=== PATIENT | male | born 1980 | race Hispanic/Latino ===

== ENCOUNTER 2025-02-11 15:59 | Emergency (ER) | payer OTHER ==
[~2025-02-11] VITALS: Ht 170.2 cm; Wt 113.4 kg
--- NOTE | 2025-02-11 16:13 | EKG ---
[facility] Test Date: 2025-02-11 Test Time: 16:07:55 Pat Name: VICKIE POMPA Department: [facility] Patient ID: [id number] Room: Gender: M [employer]: [facility] : 1980 Requested By: ASHOK ECHEVARRIA Order Number: [id number] Reading MD: Cyrus Meyer Measurements Intervals [place] Rate: 111 P: 56 [place]: 147 QRS: 51 QRSD: 97 T: -5 QT: 328 QTc: 446 Interpretive Statements Sinus tachycardia possible old inferior [place] No previous ECG available for comparison Electronically Signed On 02-11-2025 19:12:00 [employer] by Cyrus Meyer Please click the below link to view image of tracing.
[2025-02-11 16:37] LABS: NUCLEATED RED BLOOD CELLS 0.0 % (0.0-0.19); PLATELET COUNT (AUTO) 243.0 K/uL (130-400); RED BLOOD CELL COUNT(AUTO) 4.98 MIL/uL (4.50-6.20); RED CELL DISTRIBUTION WIDTH 12.7 % (11.0-15.5); WHITE BLOOD COUNT (AUTO) 9.5 K/uL (4.8-10.8)
--- NOTE | 2025-02-11 16:37 | ERN ---
General Chief Complaint: Chest Pain Stated Complaint: CHEST PAIN Time Seen by MD: 16:09 Source: patient History of Present Illness Initial Comments 44-year-old male, history of hypertension, obese, presents for chest pains. Patient reports four or five days of chest tightness. He reports difficulty taking deep respirations and some chest pain in the center of the chest. None xertional. Waxes and wanes. Very brief episodes. No current pain. He has a couple no cough congestion. No other symptoms. Timing/Duration: 1-3 hours Severity: mild Associated Symptoms: chest pain Allergies: Coded Allergies: No Known Drug Allergies (Unverified Allergy, Unknown, 02/11/25) Past Medical History Past Medical History: Hypertension, Sinusitis Past Surgical History: None ROS Dictation CONSTITUTIONAL: No chills, no fever, no weakness, no diaphoresis, no malaise. HEAD/FACE: No signs of trauma. EENT: No eye pain, no blurred vision, no tearing, no double vision, no ear sahara n, no ear discharge, no nose pain, no nasal congestion, no throat pain, no throat swelling, no mouth pain. RESPIRATORY: No cough, no orthopnea, no SOB, no stridor, no wheezing. CARDIOVASCULAR: Chest tightness. GASTROINTESTINAL/ABDOMINAL: No abdominal pain, no constipation, no diarrhea, no nausea, no vomiting. GENITOURINARY: No abnormal discharge, no dysuria, no frequent urination, no hematuria. No complaints of pain in the genitals. MUSCULOSKELETAL: No back pain, no gout, no joint pain, no joint swelling, no muscle pain, no muscle stiffness, no neck pain. INTEGUMENTARY: No change in color, no change in hair/nails, no dryness, no lesion, no lumps, no rash. NEUROLOGICAL/PSYCH: No anxiety, not depressed, no emotional problem, no headache, no numbness, no pre-existing deficit, no history of seizures, no tremors, no weakness. HEMATOLOGIC/LYMPHATIC: Not anemic, no history of blood clots, no apparent bleeding, no bruising, glands not swollen. All Systems Negative, Except as Noted. Constitutional: (-) chills, (-) diaphoresis, (-) fever, (-) malaise, (-) weakness, (-) other documentation EENTM: (+) nose congestion, (+) throat pain; (-) eye pain, (-) blurred vision, (-) tearing, (-) double vision, (-) ear pain, (-) ear discharge, (-) nose pain, (-) Throat swelling, (-) mouth pain, (-) tooth pain, (-) mouth swelling, (-) other documentation Respiratory: (-) cough, (-) orthopnea, (-) short of breath, (-) stridor, (-) wheezing, (-) other documentation Cardiovascular: (+) chest pain Gastrointestinal/Abdominal: (-) nausea, (-) vomiting, (-) diarrhea, (-) abdominal pain, (-) abdominal distention, (-) constipation, (-) rectal bleeding, (-) dark stool/melena, (-) other documentation Genitourinary: (-) penile discharge, (-) dysuria, (-) frequency, (-) hematuria, (-) pain, (-) other documentation Musculoskeletal: (-) Neck pain, (-) back pain, (-) Flank Pain, (-) joint pain, (-) joint swelling, (-) muscle pain, (-) muscle stiffness, (-) gout, (-) other documentation Skin: (-) laceration, (-) contusion, (-) abrasion, (-) abscess, (-) rash, (-) change in color, (-) change in hair, (-) change in nails, (-) diaphoresis, (-) dryness, (-) other documentation Neuro: (-) altered mental status, (-) headache, (-) syncope, (-) paralysis, (-) numbness, (-) seizure, (-) pre-existing deficit, (-) tremors, (-) weakness, (-) dizziness, (-) slurred speech, (-) vertigo, (-) other documentation Psych: (-) depression, (-) suicidal ideation, (-) anxiety, (-) emotional problems, (-) auditory hallucinations, (-) visual hallucinations Physical Exam Physical Exam Dictation VITAL SIGNS: Reviewed. GENERAL APPEARANCE: Alert, oriented x3, no acute distress, obese. HEAD AND FACE: Non-traumatic. EYES: PERRL, pink conjunctivas, eyelid no trauma, anterior chamber clear. EARS: Pinnas intact and no signs of trauma or erythema. Ear canals clear and no discharge. TMs no erythema. NOSE: No discharge, no bleeding. OROPHARYNX: Mouth normal, teeth no caries, tongue pink. Pharynx clear, no erythema. Tonsils no exudates, no abscesses noted. Mucous membrane moist. NECK: Supple, non-tender, no thyromegaly, no masses, no JVD, no bruits. BREAST: Deferred. CHEST: No tenderness, no crepitus, no paradoxical movement, no retractions. LUNGS: Clear, well-ventilated, symmetric, no rales, no wheezing, no rhonchi, no stridor, good breath sounds bilaterally. HEART: Regular rate, regular rhythm, no murmur, no gallops. VASCULAR: No peripheral edema. ABDOMEN: Soft, positive bowel sounds, nondistended, no guarding, nontender, no rebound, no masses no hepatomegaly, no splenomegaly, no Armenta's sign, no hernias. RECTAL: Deferred. GENITAL: Deferred. NEUROLOGICAL: Normal speech, gross motor function intact, gross sensory function intact. MUSCULOSKELETAL: Neck nontender, full range of motion, back nontender, full range of motion. EXTREMITIES: Nontender, full range of motion. SKIN: Color pink, dry, no turgor, no rash, no lacerations, no abrasions, no contusions. LYMPHATICS: Deferred. General Appearance: (+) no apparent distress Orientation: (+) alert, (+) oriented x 3 Head/Face Trauma: No Ear, Nose, Throat: (+) nasal congestion Neck: (-) normal inspection, (-) supple, (-) full range of motion, (-) no JVD, (-) non-tender, (-) no bruit, (-) tender, (-) limited range of motion, (-) tender lateral, (-) tender midline, (-) thyromegaly, (-) lymphadenopathy, (-) masses, (-) carotid bruit, (-) other documentaion Respiratory: (-) chest non-tender, (-) lungs clear, (-) well ventilated, (-) decreased breath sounds, (-) retractions, (-) abnormal breath sound, (-) crackles, (-) plerual rub, (-) rales, (-) rhonchi, (-) stridor, (-) wheezing, (- ) other documentation Heart: (+) tachycardia Vascular: (-) no edema, (-) normal peripheral pulse, (-) no JVD, (-) abdominal aorta, (-) abnormal peripheral pulse, (-) carotid bruit, (-) edema, (-) JVD, (-) varicose vein, (-) other documentation Gastrointestinal: (-) soft, (-) non-tender, (-) no organomegaly, (-) bowel sound present, (-) distended, (-) tender, (-) abnormal bowel sounds, (-) bowel sound absent, (-) rebound, (-) armenta's sign, (-) guarding, (-) hernia, (-) mass, (-) pulsatile mass, (-) CVA tenderness, (-) hepatomegaly, (-) spleenomegaly, (-) other documentation, (-) McBerney's, (-) other documentation Extremities: (-) normal range of motion, (-) non-tender, (-) normal inspection, (-) no pedal edema, (-) no calf tenderness, (-) normal capillary refill, (-) pelvis stable, (-) calf tenderness, (-) inflammation, (-) pedal edema, (-) slow capillary refill, (-) swelling, (-) other Neurologic/Psychiatric: (-) normal speech, (-) no motor defecits, (-) no sensory deficits, (-) half backer II-XII nml as tested, (-) normal gait, (-) normal mood/affect, (-) abnormal cerebellar tests, (-) abnormal gait, (-) aphasia, (-) facial droop, (-) other documentation Results Laboratory and Microbiology Lab and Micro Result Laboratory Tests Test 02/11/25 16:32 02/11/25 17:15 White Blood Count 9.5 K/uL (4.8-10.8) Red Blood Count 4.98 MIL/uL (4.50-6.20) Hemoglobin 15.0 g/dL (14.0-18.0) Hematocrit 44.3 % (42-54) Mean Corpuscular Volume 89.0 fL (79-99) Mean Corpuscular Hemoglobin 30.1 pg (27.0-33.0) Mean Corpuscular Hemoglobin Concent 33.9 g/dL (32.0-36.0) Red Cell Distribution Width 12.7 % (11.0-15.5) Platelet Count 243 K/uL (130-400) Mean Platelet Volume 9.5 fL (7.5-10.5) Nucleated Red Blood Cells 0.0 % (0.0-0.19) Sodium Level 138 mmol/L (136-145) Potassium Level 3.6 mmol/L (3.5-5.1) Chloride Level 102 mmol/L (101-111) Carbon Dioxide Level 29 mmol/L (21-32) Blood Urea Nitrogen 10 mg/dL (7-18) Creatinine 1.0 mg/dL (0.5-1.3) Glomerular Filtration Rate Calc 95 mL/min (>90) Random Glucose 113 mg/dL (70-105) H Total Calcium 8.6 mg/dL (8.5-10.1) Troponin I High Sensitivity 5 ng/L (4-75) Influenza Type A Antigen Negative For Type A Influenza Type B Antigen Negative For Type B SARS-CoV-2 Antigen (Rapid) PRESUMPTIVE NEGATIVE Group A Streptococcus Rapid negative (NEGATIVE) EKG/XRAY/US/CT/MRI EKG Comment Heart rate 111 WI interval 147 QT interval [address] segment elevation MDM CC: Chest tightness Historian: Patient Comorbidities: Obesity, hypertension Limitations by social determinants of health: None Differential diagnosis: ACS, PE, TID, bronchitis, other EKG: Sinus rhythm, rate 111, normal axis, good R-wave progression, intervals are stable. No STEMI. Independently interpreted by me. Labs no leukocytosis no anemia. Chemistry panel is unremarkable. Troponin normal. Chest x-ray is unremarkable Flu and COVID swabs are negative. Patient has a heart score of three based on age and risk factors. Normal troponin. He has been having chest pains for four days, no indication to repeat the troponin. No signs of PE, low risk Wells. No signs of other life threats. Plan will be to discharge to outpatient cardiology follow up. ED Course Orders Procedure Category Date Status Time 12 Lead Ekg Tracing- EKG 02/11/25 Complete Technical 16:07 Cbc Without LAB 02/11/25 Complete Differential 16:09 Basic Metabolic Panel LAB 02/11/25 Complete 16:09 Troponin I High LAB 02/11/25 Complete Sensitivity 16:09 Chest 1vw RAD 02/11/25 Taken 16:09 Influenza Type A & B, LAB 02/11/25 Complete Rapid 16:09 Rapid (Group A Strep) LAB 02/11/25 Complete 16:09 Covid19 (Sars Antigen LAB 02/11/25 Complete Rapid) 16:09 Acetaminophen 325 Tab PHA 02/11/25 Complete (Tylenol 325mg Tab 17:00 Current Medications Medications (Trade) Dose Ordered Sig/Zuleyma Route PRN Reason Start Time Stop Time Status Last Admin Dose Admin Acetaminophen (TYLenol 325MG TAB) 650 mg ONCE ONCE PO 02/11/25 17:00 02/11/25 17:01 DC 02/11/25 17:22 Vital Signs Date Time Temp Pulse Resp B/P (MAP) Pulse Ox O2 Delivery O2 Flow Rate FiO2 02/11/25 16:45 97.7 89 16 170/84 98 Room Air* 0 21 02/11/25 16:02 99.3 111 16 154/95 98 Room Air 0 DX & DISP Disposition: Discharge Departure Impression: Primary Impression: Chest pain with low risk of acute coronary syndrome Condition: Stable Additional Instructions: As we discussed, you are LOW RISK for cardiac disease, but not ZERO risk. Your EKG is unremarkable. Your chest x-ray is unremarkable. Your blood work (CBC, metabolic me panel, troponin) is unremarkable. I recommend you take a daily baby aspirin (81 mg). [facility] You likely need cardiology follow up. Please return to the emergency department if you have any concerns. DONALD BROWN MD Feb 11, 2025 16:37 ASHOK ECHEVARRIA DO Feb 11, 2025 18:27
[2025-02-11 16:48] LABS: CREATININE 1.0 mg/dL (0.5-1.3); GLOMERULAR FILTR. RATE CALC 95.0 mL/min (>90); GLUCOSE,RANDOM 113.0 mg/dL (70-105); SODIUM SERUM 138.0 mmol/L (136-145); UREA NITROGEN, BLOOD 10.0 mg/dL (7-18)
[2025-02-11 17:37] LABS: RAPID GROUP A STREP negative (NEGATIVE)
[2025-02-11 17:48] LABS: COVID19 (SARS ANTIGEN RAPID) PRESUMPTIVE NEGATIVE (NEGATIVE)
[2025-02-11 17:49] LABS: INFLUENZA TYPE A Negative For Type A (NEGATIVE); INFLUENZA TYPE B Negative For Type B (NEGATIVE)
--- NOTE | 2025-02-11 18:30 | HMCIMG ---
EXAM: CR Chest, 1 View. CLINICAL HISTORY: Cough COMPARISON: None provided. FINDINGS: LUNGS: There is no mass, infiltrate, or acute pulmonary abnormality. PLEURAL SPACES: No pleural effusion or pneumothorax. MEDIASTINUM: The cardiomediastinal silhouette is within normal limits. BONES: No acute osseous abnormality. IMPRESSION: No acute cardiopulmonary pathology is evident. /Vichy
[2025-02-11 18:42] VITALS: BP 158/98; PULSE 95; RESP 17; TEMP 97.7; O2SAT 98
== END 2025-02-11 18:46 | disposition home or self-care (01) ==
LOC: EDH 15:59
DX: R07.89 Other chest pain (principal); E66.9 Obesity, unspecified; I10 Essential (primary) hypertension; I25.2 Old myocardial infarction; Z20.822 Contact with and (suspected) exposure to COVID-19
CPT/HCPCS: 36415; 71045; 80048; 84484; 85027; 87426; 87804; 87880; 93005; 99285